=== PATIENT | female | born 1930 | race Caucasian/White ===

== ENCOUNTER 2016-12-28 13:56 | Emergency (ER) | payer MEDICARE, OTHER ==
--- NOTE | 2016-12-28 15:01 | EDM.PDOC ---
ED HISTORY OF PRESENT ILLNESS - General Chief Complaint: Cardiovascular Problem Stated Complaint: HIGH BP Time Seen by Provider: 12/28/16 14:48 Source: Reports: Patient, Family, RN notes reviewed History Limitations: Reports: No limitations - History of Present Illness INITIAL COMMENTS - FREE TEXT/NARRATIVE: 86-year-old female presents emergency department today with family for concerns of weakness she has had difficulty over the last couple months with intermittent slurring of speech as well as over the last couple weeks she's fallen 3 times at home she lives in assisted living center has also had issues with medicine compliance does have a known history of hypertension and diabetes mellitus type 2 was initially evaluated by the urgent care clinic today found to be in hypertensive urgency with systolic blood pressure over 220 was sent to the emergency department for further evaluation, other than weakness she denies any other symptoms - Related Data Allergies/ADRs: Allergies Allergy/AdvReac Type Severity Reaction Status Date / Time No Known Allergies Allergy Verified 12/28/16 14:27 Home Meds: Home Meds Aspirin [Ecotrin] 81 mg PO DAILY 12/28/16 [History] Atenolol [Atenolol] 50 mg PO DAILY 12/28/16 [History] Chlorthalidone [Chlorthalidone] 50 mg PO DAILY 12/28/16 [History] Insulin Aspart [NovoLOG] 17 units SQ BID 12/28/16 [History] Insulin Glarg,Human.Rec.Analog [Lantus] 50 units SQ DAILY 12/28/16 [History] glipiZIDE [Glipizide] 5 mg PO TID 12/28/16 [History] metFORMIN [Glucophage] 1,000 mg PO BIDMEALS 12/28/16 [History] Past Medical History HEENT History: Reports: Cataract, Impaired vision Other HEENT History: wears glasses Cardiovascular History: Reports: High cholesterol, Hypertension 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 Denies: fever, chills, weight loss, weight gain HEENT: Reports: No symptoms Respiratory: Reports: cough Cardiovascular: Reports: No symptoms GI/Abdominal: Reports: No symptoms : Reports: no symptoms Musculoskeletal: Reports: no symptoms Skin: Reports: no symptoms Neurological: Reports: difficulty walking, weakness, change in speech, other ( Frequent falls) ED EXAM, GENERAL - Physical Exam Exam: See Below Free Text/Narrative:: General: Elderly female, not in any distress, alert and oriented x3 HEENT: head is atraumatic normocephalic, eyes pupils equal round reactive to light sclera clear no conjunctivitis appreciated. Ears tympanic membranes clear and esposito landmarks and light reflex are present bilaterally canals are clear. Nose no septal deviation, nares are clear, no blood present. Mouth mucosa is moist and pink no erythema or exudate noted in soft palate, tongue is midline uvula is midline, dentition is intact. Neck: Supple no thyromegaly no tracheal deviation. Nodes: Cervical nodes subclavicular nodes nontender no palpable lymphadenopathy noted. Lungs: clear to auscultation bilaterally with symmetrical respirations, no adventitious noise appreciated. CV: Regular rate and rhythm S1 and S2 appreciated no murmurs rubs or gallops noted. Abdomen: Soft, nontender, no palpable masses or organomegaly appreciated, no distention no guarding bowel sounds are present, . Neuro: Cranial nerves II through XII grossly intact power is 5 out of 5 in upper and lower extremities Skin: Warm and dry, intact Extremities: +2 pitting edema bilaterally, pedal pulse is +2. Course - Vital Signs Last Recorded V/S: Last Vital Signs Temp 99.5 F 12/28/16 14:18 Pulse 81 12/28/16 17:22 Resp 20 12/28/16 17:22 BP 194/90 H 12/28/16 17:33 Pulse Ox 96 12/28/16 17:22 - Orders/Labs/Meds Orders: Active Orders 24 hr Category Date Time Status EKG Documentation Completion [RC] ASDIRECTED Care 12/28/16 14:57 Active Chest 2V [CR] Urgent Exams 12/28/16 14:56 Taken Head wo Cont [CT] Urgent Exams 12/28/16 14:56 Taken CULTURE URINE [RM] Urgent Lab 12/28/16 17:51 Received EKG 12 Lead [EK] Urgent Ther 12/28/16 14:56 Ordered Labs: Laboratory Tests 12/28/16 12/28/16 12/28/16 Range/Units 15:28 15:28 15:28 WBC 13.2 H (4.5-11.0) K/uL RBC 5.18 (3.30-5.50) M/uL Hgb 15.3 H (12.0-15.0) g/dL Hct 47.2 (36.0-48.0) % MCV 91 (80-98) fL MCH 30 (27-31) pg MCHC 32 (32-36) % Plt Count 273 (150-400) K/uL Neut % (Auto) 73 H (36-66) % Lymph % (Auto) 19 L (24-44) % [place] % (Auto) 6 (2-6) % Eos % (Auto) 2 (2-4) % Baso % (Auto) 1 (0-1) % Sodium 140 (140-148) mmol/L Potassium 3.6 (3.6-5.2) mmol/L Chloride 102 (100-108) mmol/L Carbon Dioxide 31 (21-32) mmol/L Anion Gap 6.6 (5.0-14.0) mmol/L BUN 10 (7-18) mg/dL Creatinine 0.9 (0.6-1.0) mg/dL Est Cr Clr Drug Dosing 44.44 mL/min Estimated GFR (MDRD) 60 (>60) Glucose 111 H (74-106) mg/dL Lactic Acid (0.4-2.0) mmol/L Calcium 8.8 (8.5-10.1) mg/dL Phosphorus 3.3 (2.5-4.9) mg/dL Magnesium 1.7 L (1.8-2.4) mg/dL Total Bilirubin 0.8 (0.2-1.0) mg/dL AST 28 (15-37) U/L ALT 28 (12-78) U/L Alkaline Phosphatase 52 (46-116) U/L Ammonia 2 L (11-32) mmol/L Troponin I 0.033 (0.000-0.056) ng/mL Total Protein 6.8 (6.4-8.2) g/dL Albumin 3.2 L (3.4-5.0) g/dL Globulin 3.6 H (2.3-3.5) g/dL Albumin/Globulin Ratio 0.9 L (1.2-2.2) Urine Color Urine Appearance Urine pH (4.5-8.0) Ur Specific [place] (1.008-1.030) Urine Protein (NEGATIVE) mg/dL Urine Glucose (UA) (NEGATIVE) mg/dL Urine Ketones (NEGATIVE) mg/dL Urine Occult Blood (NEGATIVE) Urine Nitrite (NEGATIVE) Urine Bilirubin (NEGATIVE) Urine Urobilinogen (NORMAL) mg/dL Ur Leukocyte Esterase (NEGATIVE) Urine RBC (0-5) Urine WBC (0-5) Ur Epithelial Cells Amorphous Sediment Urine Bacteria Urine Mucus 12/28/16 12/28/16 Range/Units 15:28 16:27 WBC (4.5-11.0) K/uL RBC (3.30-5.50) M/uL Hgb (12.0-15.0) g/dL Hct (36.0-48.0) % MCV (80-98) fL MCH (27-31) pg MCHC (32-36) % Plt Count (150-400) K/uL Neut % (Auto) (36-66) % Lymph % (Auto) (24-44) % [place] % (Auto) (2-6) % Eos % (Auto) (2-4) % Baso % (Auto) (0-1) % Sodium (140-148) mmol/L Potassium (3.6-5.2) mmol/L Chloride (100-108) mmol/L Carbon Dioxide (21-32) mmol/L Anion Gap (5.0-14.0) mmol/L BUN (7-18) mg/dL Creatinine (0.6-1.0) mg/dL Est Cr Clr Drug Dosing mL/min Estimated GFR (MDRD) (>60) Glucose (74-106) mg/dL Lactic Acid 1.5 (0.4-2.0) mmol/L Calcium (8.5-10.1) mg/dL Phosphorus (2.5-4.9) mg/dL Magnesium (1.8-2.4) mg/dL Total Bilirubin (0.2-1.0) mg/dL AST (15-37) U/L ALT (12-78) U/L Alkaline Phosphatase (46-116) U/L Ammonia (11-32) mmol/L Troponin I (0.000-0.056) ng/mL Total Protein (6.4-8.2) g/dL Albumin (3.4-5.0) g/dL Globulin (2.3-3.5) g/dL Albumin/Globulin Ratio (1.2-2.2) Urine Color Yellow Urine Appearance Slightly cloudy Urine pH 5.0 (4.5-8.0) Ur Specific [place] 1.020 (1.008-1.030) Urine Protein Negative (NEGATIVE) mg/dL Urine Glucose (UA) Normal (NEGATIVE) mg/dL Urine Ketones Negative (NEGATIVE) mg/dL Urine Occult Blood Moderate (NEGATIVE) Urine Nitrite Positive H (NEGATIVE) Urine Bilirubin Negative (NEGATIVE) Urine Urobilinogen Normal (NORMAL) mg/dL Ur Leukocyte Esterase Moderate (NEGATIVE) Urine RBC 5-10 H (0-5) Urine WBC >100 H (0-5) Ur Epithelial Cells Few Amorphous Sediment Not seen Urine Bacteria Many Urine Mucus Few Meds: Medications Discontinued Medications Generic Name Dose Route Start Last Admin Trade Name Freq PRN Reason Stop Dose Admin Atenolol 50 mg 12/28/16 16:52 12/28/16 17:02 Tenormin PO 12/28/16 16:53 50 mg ONETIME ONE Administration Chlorthalidone 50 mg 12/28/16 16:52 12/28/16 17:03 Chlorthalidone PO 12/28/16 16:53 50 mg ONETIME ONE Administration Nitroglycerin 0.4 mg 12/28/16 17:28 12/28/16 17:33 Nitrostat SL 12/28/16 17:29 0.4 mg ONETIME ONE Administration Trimethoprim/Sulfamethoxazole 1 tab 12/28/16 16:52 12/28/16 17:02 Septra Ds PO 12/28/16 16:53 1 tab ONETIME ONE Administration Departure - Departure Time of Disposition: 18:04 Disposition: Home, Self-Care 01 Condition: good Clinical Impression: Hypertensive urgency Urinary tract infection Qualifiers: Urinary tract infection type: acute cystitis Hematuria presence: with hematuria Qualified Code(s): N30.01 - Acute cystitis with hematuria Forms: ED Department Discharge Additional Instructions: take full course of antibiotics, resume your normal blood pressure medications, please followup with your primary care provider in the next 3-5 days for reevaluation - My Orders Last 24 Hours: My Active Orders 12/28/16 14:56 Chest 2V [CR] Urgent Head wo Cont [CT] Urgent EKG 12 Lead [EK] Urgent 12/28/16 14:57 EKG Documentation Completion [RC] ASDIRECTED 12/28/16 17:51 CULTURE URINE [RM] Urgent - Assessment/Plan Last 24 Hours: My Active Orders 12/28/16 14:56 Chest 2V [CR] Urgent Head wo Cont [CT] Urgent EKG 12 Lead [EK] Urgent 12/28/16 14:57 EKG Documentation Completion [RC] ASDIRECTED 12/28/16 17:51 CULTURE URINE [RM] Urgent Plan: Assessment Acuity = acute Site and laterality = urinary tract infection in a patient with known history of diabetes mellitus type 2 and hypertension as well as poor medical compliance Etiology = bacterial cause Manifestations = hypertensive urgency Location of injury = home Lab values = WBC elevated at 13.2 consistent leukocytosis magnesium low 1.7 consistent hypomagnesemia, urinalysis demonstrates positive nitrates 5-10 rbc's consistent hematuria and greater than 100 WBCs consistent pyuria cultures pending CT head was negative Plan plan is to restart her blood pressure medications were given in the ED as well as start Bactrim DS 1 tab by mouth twice a day x5 days her blood pressure did respond to the family about changing her living situation to increase the level of care in this living center so that nursing could help with her medications, recommend followup with primary care to 5 days for reevaluation bp 138/83 Patient was in agreement with the plan all questions were answered, they were instructed to return to the emergency department or call for worsening symptoms. This note was dictated using [employer] voice recognition software please call with any questions.
[2016-12-28] MEDS ORDERED: Chlorthalidone 25 MG Tab PO ONE (16:52)
[2016-12-28] MEDS ORDERED: Sulfamethoxazole/Trimethoprim 800-160 MG Tab PO ONE (16:52)
[2016-12-28] MEDS ORDERED: Atenolol 50 MG Tab PO ONE (16:52)
[2016-12-28] MEDS ORDERED: Nitroglycerin 0.4 MG Tab.SL SL ONE (17:28)
[2016-12-28 18:04] VITALS: BP 138/53
--- NOTE | 2016-12-31 09:31 | CR ---
Chest 2V HISTORY: Cough FINDINGS: The heart and vascular structures are normal in appearance. No infiltrates or effusions ar e demonstrated. The skeletal structures are unremarkable. IMPRESSION: Negative exam.
== END 2016-12-28 19:29 | disposition home or self-care (01) ==
LOC: JP.ED 13:56
DX: I10 Essential (primary) hypertension (principal); N30.01 Acute cystitis with hematuria; E78.00 Pure hypercholesterolemia, unspecified; E11.9 Type 2 diabetes mellitus without complications; Z98.49 Cataract extraction status, unspecified eye; Z98.890 Other specified postprocedural states; Z79.4 Long term (current) use of insulin; Z79.82 Long term (current) use of aspirin; Z79.899 Other long term (current) drug therapy
CPT/HCPCS: 36415; 70450; 71020; 80053; 81001; 82140; 82962; 83605; 83735; 84100; 84484; 85025; 87086; 93005; 99285; A9270; 87088; 87186; 93010; 99283